=== PATIENT | male | born 1935 | race Caucasian/White ===

== ENCOUNTER 2021-10-11 16:09 | Inpatient (IN) ==
[2021-10-11 16:53] LABS: Basophils % 0.3 % (0.0-0.8); Eosinophils # 0.1 10*3/uL (0.0-0.87); Hematocrit 36.9 VOL% (42.0-52.0); Hemoglobin 12.2 GM/DL (14.0-18.0); Immature Granulocytes % 0.6 %; Immature Granulocytes Absolute 0.08 #; Lymphocytes # 2.1 10*3/uL (1.4-4.0); Lymphocytes % 16.4 % (21.2-54.2); Mean Corpuscular HGB Conc 33.1 GM/DL (32-36); Mean Corpuscular Volume 94.1 FL (87-102); Mean Platelet Volume 11.2 FL (9.6-12.0); Monocytes % 6.7 % (1.7-12.7); Platelet Count 142 T/CUMM (130-400); Red Blood Count 3.92 MC/CUMM (3.8-5.5); Red Cell Distribution Width 13.7 % (9.3-17.3)
[2021-10-11 17:01] LABS: INR 1.1; PT Patient Result 11.8 SECS (10.5-12.0)
[2021-10-11] MEDS: HEPARIN DRIP 25,000 UNITS/500 ML PREMIX IV SCH (17:10)
[2021-10-11 17:12] LABS: Albumin 3.7 G/DL (3.4-5.0); Bilirubin,Total 0.4 MG/DL (0.20-1.00); Osmolality,Calculated 279.8 MOS/KG (273-304); Potassium 4.3 MMOL/L (3.5-5.1); Total Protein 8.1 G/DL (6.4-8.2)
[2021-10-11] MEDS ORDERED: MORPHINE 2 MG/1 ML SYRINGE IV STA (17:18)
[2021-10-11] MEDS ORDERED: ONDANSETRON 4 MG/2 ML VIAL IV PRN (17:29)
[2021-10-11] MEDS ORDERED: GLUCAGON 1 MG VIAL IM PRN ×2 (17:36→17:38)
[2021-10-11] MEDS ORDERED: DEXTROSE 50% 25 GM/50 ML SYRINGE IV PRN (17:36)
[2021-10-11] MEDS: SODIUM CHLORIDE 0.9% 1,000 ML IV SCH (17:36)
[2021-10-11] MEDS ORDERED: DEXTROSE 50% 25 GM/50 ML VIAL IV PRN (17:38)
[2021-10-11] MEDS ORDERED: INSULIN LISPRO 100 UNIT/ML SUBCUT SCH (18:00)
[2021-10-11] MEDS ORDERED: DEXTROSE 10% 250 ML BAG IV PRN (20:06)
[2021-10-11] MEDS: MORPHINE 2 MG/1 ML SYRINGE IV PRN (20:26)
[2021-10-11] MEDS: GABAPENTIN 300 MG CAPSULE PO SCH (21:41)
[2021-10-11] MEDS: DOCUSATE SODIUM 100 MG CAPSULE PO SCH (21:42)
[2021-10-11] MEDS: METOPROLOL TARTRATE 50 MG TABLET PO SCH (21:42)
[2021-10-11] MEDS: ATORVASTATIN 20 MG TABLET PO SCH (21:42)
[2021-10-11] MEDS ORDERED: HYDROmorphone 2 MG/1 ML VIAL IV PRN (21:58)
[2021-10-11] MEDS: INSULIN LISPRO 100 UNIT/ML SUBCUT SCH (23:36)
[2021-10-12] MEDS: INSULIN LISPRO 100 UNIT/ML SUBCUT SCH ×4 (00:30→23:34)
[2021-10-12] MEDS: HYDROmorphone 2 MG/1 ML VIAL IV PRN ×4 (01:25→18:45)
[2021-10-12 08:29] LABS: Basophils % 0.3 % (0.0-0.8); Eosinophils # 0.1 10*3/uL (0.0-0.87); Eosinophils % 0.6 % (0.00-10.9); Hemoglobin 12.2 GM/DL (14.0-18.0); Immature Granulocytes % 0.4 %; Immature Granulocytes Absolute 0.05 #; Lymphocytes # 2.3 10*3/uL (1.4-4.0); Lymphocytes % 16.9 % (21.2-54.2); Mean Corpuscular HGB Conc 34.9 GM/DL (32-36); Mean Corpuscular Volume 91.9 FL (87-102); Mean Platelet Volume 10.8 FL (9.6-12.0); Monocytes % 10.4 % (1.7-12.7); Neutrophils % 71.4 % (38.7-73.9); Platelet Count 182 T/CUMM (130-400); Red Blood Count 3.81 MC/CUMM (3.8-5.5); Red Cell Distribution Width 13.5 % (9.3-17.3); White Blood Count 13.8 T/CUMM (4-12)
[2021-10-12] MEDS: METOPROLOL TARTRATE 50 MG TABLET PO SCH ×2 (08:34→23:36)
[2021-10-12] MEDS: PANTOPRAZOLE 40 MG TABLET PO SCH (08:34)
[2021-10-12] MEDS: DOCUSATE SODIUM 100 MG CAPSULE PO SCH ×2 (08:34→23:36)
[2021-10-12] MEDS: GABAPENTIN 300 MG CAPSULE PO SCH ×2 (08:34→23:36)
[2021-10-12 08:51] LABS: Calcium 8.6 MG/DL (8.5-10.1); Osmolality,Calculated 267.5 MOS/KG (273-304); Potassium 3.8 MMOL/L (3.5-5.1)
[2021-10-12] MEDS: SODIUM CHLORIDE 0.9% 1,000 ML IV SCH ×2 (10:08→12:21)
[2021-10-12] MEDS ORDERED: VANCOMYCIN INJ 1,500 MG in SODIUM CHLORIDE 0.9% 250 ML IV ONE (12:50)
[2021-10-12] MEDS ORDERED: HEPARIN 5,000 UNIT/1 ML VIAL ONE (13:08)
[2021-10-12] MEDS ORDERED: DEXAMETHASONE 4 MG/1 ML VIAL ONE (13:24)
[2021-10-12] MEDS ORDERED: INFLUENZA VIRUS VACCINE 0.5 ML SYRINGE IM ONE (13:28)
[2021-10-12] MEDS ORDERED: VANCOMYCIN INJ 1,500 MG in SODIUM CHLORIDE 0.9% 500 ML IV ONE (13:30)
[2021-10-12] MEDS ORDERED: LACTATED RINGERS 1,000 ML IV SCH (14:00)
[2021-10-12 16:15] LABS: Bilirubin,Urine Negative (Negative); Blood, Urine Large mg/dL (Negative); Glucose,Urine (UA) Negative (Negative); Hyaline Casts,Urine 1 /LPF (0-3); Ketones,Urine Negative (Negative); Nitrite,Urine Negative (Negative); Protein,Urine 100 MG/DL; RBC,Urine 1 /HPF (0-4); Urine Appearance CLEAR (Clear); Urine Color Yellow (Yellow); Urine Specific Gravity 1.012 (1.001-1.035); Urine Urobilinogen < 2.0 EU/DL (<2.0)
[2021-10-12] MEDS ORDERED: ONDANSETRON 4 MG/2 ML VIAL IV PRN (17:06)
[2021-10-12] MEDS ORDERED: MEPERIDINE 25 MG/1 ML VIAL ONE (17:25)
[2021-10-12] MEDS ORDERED: MEPERIDINE 25 MG/1 ML VIAL IV PRN (17:30)
[2021-10-12 18:01] LABS: Hematocrit 36.9 VOL% (42.0-52.0); Hemoglobin 12.2 GM/DL (14.0-18.0)
[2021-10-12 18:32] LABS: Calcium 8.2 MG/DL (8.5-10.1); Osmolality,Calculated 271.2 MOS/KG (273-304); Potassium 4.9 MMOL/L (3.5-5.1)
[2021-10-12] MEDS: ATORVASTATIN 20 MG TABLET PO SCH (23:36)
[2021-10-13] MEDS: HYDROmorphone 2 MG/1 ML VIAL IV PRN ×7 (00:16→21:36)
[2021-10-13] MEDS: INSULIN LISPRO 100 UNIT/ML SUBCUT SCH ×4 (01:35→17:25)
[2021-10-13] MEDS: SODIUM CHLORIDE 0.9% 1,000 ML IV SCH ×3 (01:56→17:25)
[2021-10-13] MEDS: LACTATED RINGERS 1,000 ML IV SCH ×4 (01:56→11:54)
[2021-10-13 06:11] LABS: Basophils % 0.1 % (0.0-0.8); Hematocrit 33.5 VOL% (42.0-52.0); Hemoglobin 11.3 GM/DL (14.0-18.0); Immature Granulocytes % 0.4 %; Immature Granulocytes Absolute 0.06 #; Lymphocytes # 1.9 10*3/uL (1.4-4.0); Lymphocytes % 13.2 % (21.2-54.2); Mean Corpuscular HGB Conc 33.7 GM/DL (32-36); Mean Corpuscular Volume 93.3 FL (87-102); Monocytes % 13.8 % (1.7-12.7); Neutrophils % 72.5 % (38.7-73.9); Platelet Count 160 T/CUMM (130-400); Red Blood Count 3.59 MC/CUMM (3.8-5.5); Red Cell Distribution Width 13.7 % (9.3-17.3); White Blood Count 14.6 T/CUMM (4-12)
[2021-10-13 06:36] LABS: Calcium 8.1 MG/DL (8.5-10.1); Osmolality,Calculated 272.2 MOS/KG (273-304); Potassium 4.3 MMOL/L (3.5-5.1)
[2021-10-13] MEDS: HEPARIN DRIP 25,000 UNITS/500 ML PREMIX IV SCH (08:11)
[2021-10-13] MEDS: MORPHINE 2 MG/1 ML SYRINGE IV PRN ×3 (08:43→18:15)
[2021-10-13] MEDS: PANTOPRAZOLE 40 MG TABLET PO SCH (08:44)
[2021-10-13] MEDS: ASPIRIN CHEW 81 MG TABLET PO SCH (08:44)
[2021-10-13] MEDS: METOPROLOL TARTRATE 50 MG TABLET PO SCH ×2 (08:45→20:07)
[2021-10-13] MEDS: GABAPENTIN 300 MG CAPSULE PO SCH ×2 (08:45→20:08)
[2021-10-13] MEDS: DOCUSATE SODIUM 100 MG CAPSULE PO SCH ×2 (08:45→20:07)
[2021-10-13] MEDS: ENOXAPARIN 30 MG/0.3 ML SYRINGE SUBCUT SCH ×2 (12:46→23:55)
[2021-10-13] MEDS: diphenhydrAMINE CAP 25 MG CAPSULE PO SCH (20:07)
[2021-10-13] MEDS: ACETAMINOPHEN 325 MG TABLET PO PRN (20:07)
[2021-10-13] MEDS: MULTIVITAMIN (INTRINSIC) CAPSULE PO SCH (20:07)
[2021-10-13] MEDS: ATORVASTATIN 20 MG TABLET PO SCH (20:07)
[2021-10-14] MEDS: HYDROmorphone 2 MG/1 ML VIAL IV PRN ×4 (00:12→22:33)
[2021-10-14] MEDS: INSULIN LISPRO 100 UNIT/ML SUBCUT SCH ×4 (00:13→18:11)
[2021-10-14] MEDS: SODIUM CHLORIDE 0.9% 1,000 ML IV SCH ×3 (02:12→18:10)
[2021-10-14] MEDS: ACETAMINOPHEN 325 MG TABLET PO PRN (04:35)
[2021-10-14] MEDS: MORPHINE 2 MG/1 ML SYRINGE IV PRN ×3 (06:40→17:00)
[2021-10-14] MEDS: LACTATED RINGERS 1,000 ML IV SCH ×2 (07:20→22:36)
[2021-10-14] MEDS: MULTIVITAMIN (INTRINSIC) CAPSULE PO SCH ×2 (08:52→21:03)
[2021-10-14] MEDS: DOCUSATE SODIUM 100 MG CAPSULE PO SCH ×2 (08:53→21:03)
[2021-10-14] MEDS: LORATADINE 10 MG TABLET PO SCH (08:53)
[2021-10-14] MEDS: GABAPENTIN 300 MG CAPSULE PO SCH ×2 (08:53→21:03)
[2021-10-14] MEDS: ASPIRIN CHEW 81 MG TABLET PO SCH (08:53)
[2021-10-14] MEDS: METOPROLOL TARTRATE 50 MG TABLET PO SCH ×2 (08:53→21:03)
[2021-10-14] MEDS: PANTOPRAZOLE 40 MG TABLET PO SCH (10:33)
[2021-10-14 11:15] LABS: Basophils % 0.2 % (0.0-0.8); Eosinophils # 0.1 10*3/uL (0.0-0.87); Eosinophils % 0.8 % (0.00-10.9); Hematocrit 33.8 VOL% (42.0-52.0); Hemoglobin 10.7 GM/DL (14.0-18.0); Immature Granulocytes % 0.5 %; Immature Granulocytes Absolute 0.07 #; Lymphocytes # 1.7 10*3/uL (1.4-4.0); Lymphocytes % 13.5 % (21.2-54.2); Mean Corpuscular HGB Conc 31.7 GM/DL (32-36); Mean Corpuscular Volume 99.4 FL (87-102); Mean Platelet Volume 10.7 FL (9.6-12.0); Red Cell Distribution Width 13.5 % (9.3-17.3); White Blood Count 12.8 T/CUMM (4-12)
[2021-10-14 11:21] LABS: Platelet Count 126 T/CUMM (130-400)
[2021-10-14 11:34] LABS: Albumin 2.2 G/DL (3.4-5.0); Bilirubin,Total 1.6 MG/DL (0.20-1.00); Calcium 7.9 MG/DL (8.5-10.1); Potassium 3.9 MMOL/L (3.5-5.1); Total Protein 6.2 G/DL (6.4-8.2)
[2021-10-14 11:48] LABS: Anisocytosis 1+; Macrocytosis 1+; Platelet Estimate Adequate
[2021-10-14] MEDS: ENOXAPARIN 30 MG/0.3 ML SYRINGE SUBCUT SCH ×2 (12:05→22:34)
[2021-10-14] MEDS: diphenhydrAMINE CAP 25 MG CAPSULE PO SCH (21:03)
[2021-10-14] MEDS: ATORVASTATIN 20 MG TABLET PO SCH (21:03)
[2021-10-15] MEDS: HYDROmorphone 2 MG/1 ML VIAL IV PRN ×5 (00:55→23:36)
[2021-10-15] MEDS: INSULIN LISPRO 100 UNIT/ML SUBCUT SCH ×4 (01:15→19:00)
[2021-10-15] MEDS: SODIUM CHLORIDE 0.9% 1,000 ML IV SCH ×3 (02:11→16:35)
[2021-10-15] MEDS: LACTATED RINGERS 1,000 ML IV SCH ×2 (04:12→14:21)
[2021-10-15 07:13] LABS: Basophils % 0.2 % (0.0-0.8); Eosinophils # 0.1 10*3/uL (0.0-0.87); Eosinophils % 0.7 % (0.00-10.9); Hematocrit 32.6 VOL% (42.0-52.0); Hemoglobin 10.5 GM/DL (14.0-18.0); Immature Granulocytes % 1.7 %; Immature Granulocytes Absolute 0.21 #; Lymphocytes # 1.5 10*3/uL (1.4-4.0); Lymphocytes % 11.8 % (21.2-54.2); Mean Corpuscular HGB Conc 32.2 GM/DL (32-36); Mean Corpuscular Volume 96.2 FL (87-102); Mean Platelet Volume 11.1 FL (9.6-12.0); Monocytes % 10.7 % (1.7-12.7); Neutrophils % 74.9 % (38.7-73.9); Platelet Count 158 T/CUMM (130-400); Red Blood Count 3.39 MC/CUMM (3.8-5.5); Red Cell Distribution Width 13.6 % (9.3-17.3); White Blood Count 12.6 T/CUMM (4-12)
[2021-10-15 07:43] LABS: Albumin 2.4 G/DL (3.4-5.0); Bilirubin,Total 0.6 MG/DL (0.20-1.00); Calcium 8.7 MG/DL (8.5-10.1); Osmolality,Calculated 277.1 MOS/KG (273-304); Potassium 3.9 MMOL/L (3.5-5.1)
[2021-10-15] MEDS: DOCUSATE SODIUM 100 MG CAPSULE PO SCH ×2 (08:37→20:17)
[2021-10-15] MEDS: ASPIRIN CHEW 81 MG TABLET PO SCH (08:37)
[2021-10-15] MEDS: METOPROLOL TARTRATE 50 MG TABLET PO SCH ×2 (08:37→20:17)
[2021-10-15] MEDS: LORATADINE 10 MG TABLET PO SCH (08:37)
[2021-10-15] MEDS: GABAPENTIN 300 MG CAPSULE PO SCH ×2 (08:37→20:17)
[2021-10-15] MEDS: MULTIVITAMIN (INTRINSIC) CAPSULE PO SCH ×2 (08:37→20:17)
[2021-10-15] MEDS: PANTOPRAZOLE 40 MG TABLET PO SCH (08:37)
[2021-10-15] MEDS: ACETAMINOPHEN 325 MG TABLET PO PRN (08:37)
[2021-10-15] MEDS ORDERED: SODIUM CHLORIDE 0.9% 500 ML IV ONE (11:14)
[2021-10-15] MEDS ORDERED: cefTRIAXone 1,000 MG in SODIUM CHLORIDE 0.9% 100 ML IV SCH (11:30)
[2021-10-15 12:14] LABS: Hepatitis B Core IgM Quant 0.22 Index; Hepatitis B Surface Ag Quant < 0.10 Index; Hepatitis B Surface Ag Result Non-Reactive (NonReactive); Hepatitis C Virus Ab Quant 0.07 Index; Hepatitis C Virus Ab Result Non-Reactive (NonReactive)
[2021-10-15] MEDS: ENOXAPARIN 30 MG/0.3 ML SYRINGE SUBCUT SCH ×2 (12:40→23:40)
[2021-10-15 15:54] LABS: Bilirubin,Urine Negative (Negative); Blood, Urine Large mg/dL (Negative); Glucose,Urine (UA) Negative (Negative); Ketones,Urine 5 mg/dL (Negative); Mucus,Urine Occasional /LPF (Occasional); Nitrite,Urine Negative (Negative); Protein,Urine 100 MG/DL; Squamous Epithelial Cell,Urine Occasional /HPF (0-10); Urine Appearance CLEAR (Clear); Urine Color Yellow (Yellow); Urine Specific Gravity 1.012 (1.001-1.035); Urine Urobilinogen < 2.0 EU/DL (<2.0)
[2021-10-15] MEDS: diphenhydrAMINE CAP 25 MG CAPSULE PO SCH (20:17)
[2021-10-16] MEDS: INSULIN LISPRO 100 UNIT/ML SUBCUT SCH ×4 (01:55→18:44)
[2021-10-16] MEDS: HYDROmorphone 2 MG/1 ML VIAL IV PRN ×4 (03:22→20:19)
[2021-10-16 06:15] LABS: Basophils % 0.1 % (0.0-0.8); Eosinophils # 0.1 10*3/uL (0.0-0.87); Hematocrit 29.2 VOL% (42.0-52.0); Hemoglobin 9.5 GM/DL (14.0-18.0); Immature Granulocytes % 0.5 %; Immature Granulocytes Absolute 0.06 #; Lymphocytes # 1.1 10*3/uL (1.4-4.0); Lymphocytes % 9.9 % (21.2-54.2); Mean Corpuscular HGB Conc 32.5 GM/DL (32-36); Mean Corpuscular Volume 96.1 FL (87-102); Mean Platelet Volume 10.7 FL (9.6-12.0); Monocytes % 11.2 % (1.7-12.7); Neutrophils % 77.3 % (38.7-73.9); Platelet Count 173 T/CUMM (130-400); Red Blood Count 3.04 MC/CUMM (3.8-5.5); Red Cell Distribution Width 13.6 % (9.3-17.3); White Blood Count 10.9 T/CUMM (4-12)
[2021-10-16 06:34] LABS: Calcium 8.7 MG/DL (8.5-10.1); Osmolality,Calculated 280.8 MOS/KG (273-304); Potassium 3.7 MMOL/L (3.5-5.1)
[2021-10-16 06:36] LABS: Alanine Aminotransferase 151 U/L (16-61); Alkaline Phosphatase 74 U/L (45-117); Aspartate Amino Transferase 567 U/L (0-37); Bilirubin,Direct < 0.100 MG/DL (0.0-0.20); Bilirubin,Indirect 1.7 MG/DL (0.0-1.0); Total Protein 6.4 G/DL (6.4-8.2)
[2021-10-16 06:37] LABS: Eosinophils 1 % (0-10); Hypochromia 1+; Lymphocytes 11 % (20-55); Microcytosis 1+; Platelet Estimate Adequate; Segmented Neutrophils 77 % (50-85); Total Cells Counted 100
[2021-10-16] MEDS: METOPROLOL TARTRATE 50 MG TABLET PO SCH ×2 (08:17→21:59)
[2021-10-16] MEDS: GABAPENTIN 300 MG CAPSULE PO SCH ×2 (08:17→21:57)
[2021-10-16] MEDS: ASPIRIN CHEW 81 MG TABLET PO SCH (08:17)
[2021-10-16] MEDS: PANTOPRAZOLE 40 MG TABLET PO SCH (08:17)
[2021-10-16] MEDS: LORATADINE 10 MG TABLET PO SCH (08:17)
[2021-10-16] MEDS: MULTIVITAMIN (INTRINSIC) CAPSULE PO SCH ×2 (08:17→21:56)
[2021-10-16] MEDS: DOCUSATE SODIUM 100 MG CAPSULE PO SCH ×2 (08:18→21:57)
[2021-10-16] MEDS: LACTATED RINGERS 1,000 ML IV SCH (10:43)
[2021-10-16] MEDS: SODIUM CHLORIDE 0.9% 1,000 ML IV SCH ×2 (12:01→18:44)
[2021-10-16] MEDS: CEFEPIME 1,000 MG in SODIUM CHLORIDE 0.9% 100 ML IV SCH ×2 (12:35→16:40)
[2021-10-16] MEDS: ENOXAPARIN 30 MG/0.3 ML SYRINGE SUBCUT SCH (12:36)
[2021-10-16] MEDS: POLYETHYLENE GLYCOL POWDER 17 GM PACK PO SCH (14:55)
[2021-10-16] MEDS: ACETAMINOPHEN 325 MG TABLET PO PRN (18:08)
[2021-10-16] MEDS: diphenhydrAMINE CAP 25 MG CAPSULE PO SCH (21:58)
[2021-10-17] MEDS: INSULIN LISPRO 100 UNIT/ML SUBCUT SCH ×4 (00:01→18:30)
[2021-10-17] MEDS: ENOXAPARIN 30 MG/0.3 ML SYRINGE SUBCUT SCH ×2 (00:49→13:34)
[2021-10-17] MEDS: ASPIRIN CHEW 81 MG TABLET PO SCH (08:41)
[2021-10-17] MEDS: PANTOPRAZOLE 40 MG TABLET PO SCH (08:42)
[2021-10-17] MEDS: GABAPENTIN 300 MG CAPSULE PO SCH ×2 (08:42→20:24)
[2021-10-17] MEDS: MULTIVITAMIN (INTRINSIC) CAPSULE PO SCH ×2 (08:42→20:24)
[2021-10-17] MEDS: LORATADINE 10 MG TABLET PO SCH (08:42)
[2021-10-17] MEDS: DOCUSATE SODIUM 100 MG CAPSULE PO SCH ×2 (08:42→20:24)
[2021-10-17] MEDS: METOPROLOL TARTRATE 50 MG TABLET PO SCH ×2 (08:42→20:24)
[2021-10-17] MEDS: POLYETHYLENE GLYCOL POWDER 17 GM PACK PO SCH (08:42)
[2021-10-17 09:07] LABS: Basophils % 0.3 % (0.0-0.8); Eosinophils # 0.2 10*3/uL (0.0-0.87); Eosinophils % 1.3 % (0.00-10.9); Hematocrit 29.5 VOL% (42.0-52.0); Hemoglobin 9.7 GM/DL (14.0-18.0); Immature Granulocytes % 0.7 %; Immature Granulocytes Absolute 0.08 #; Lymphocytes # 1.6 10*3/uL (1.4-4.0); Lymphocytes % 13.3 % (21.2-54.2); Mean Corpuscular HGB Conc 32.9 GM/DL (32-36); Mean Corpuscular Volume 95.2 FL (87-102); Mean Platelet Volume 10.5 FL (9.6-12.0); Monocytes % 10.2 % (1.7-12.7); Neutrophils % 74.2 % (38.7-73.9); Platelet Count 222 T/CUMM (130-400); Red Cell Distribution Width 13.9 % (9.3-17.3); White Blood Count 11.9 T/CUMM (4-12)
[2021-10-17 09:30] LABS: Albumin 2.1 G/DL (3.4-5.0); Bilirubin,Direct 0.15 MG/DL (0.0-0.20); Bilirubin,Indirect 0.8 MG/DL (0.0-1.0); Bilirubin,Total 0.9 MG/DL (0.20-1.00); Calcium 9.1 MG/DL (8.5-10.1); Osmolality,Calculated 291.1 MOS/KG (273-304); Potassium 3.9 MMOL/L (3.5-5.1)
[2021-10-17] MEDS: HYDROmorphone 2 MG/1 ML VIAL IV PRN ×2 (10:00→19:57)
[2021-10-17] MEDS: CEFEPIME 1,000 MG in SODIUM CHLORIDE 0.9% 100 ML IV SCH ×3 (11:19→16:58)
[2021-10-17] MEDS: SODIUM CHLORIDE 0.9% 1,000 ML IV SCH (11:23)
[2021-10-17] MEDS: LACTATED RINGERS 1,000 ML IV SCH (12:07)
[2021-10-17] MEDS: ACETAMINOPHEN 325 MG TABLET PO PRN (19:52)
[2021-10-17] MEDS: diphenhydrAMINE CAP 25 MG CAPSULE PO SCH (20:24)
[2021-10-18] MEDS: ENOXAPARIN 30 MG/0.3 ML SYRINGE SUBCUT SCH ×3 (00:09→23:49)
[2021-10-18] MEDS: INSULIN LISPRO 100 UNIT/ML SUBCUT SCH ×4 (00:40→18:14)
[2021-10-18] MEDS: CEFEPIME 1,000 MG in SODIUM CHLORIDE 0.9% 100 ML IV SCH ×3 (02:56→17:34)
[2021-10-18] MEDS: HYDROmorphone 2 MG/1 ML VIAL IV PRN ×2 (06:29→20:42)
[2021-10-18] MEDS: ACETAMINOPHEN 325 MG TABLET PO PRN (06:30)
[2021-10-18 07:45] LABS: Basophils # 0.1 10*3/uL (0.0-0.2); Basophils % 0.5 % (0.0-0.8); Eosinophils # 0.1 10*3/uL (0.0-0.87); Eosinophils % 0.8 % (0.00-10.9); Hematocrit 28.3 VOL% (42.0-52.0); Hemoglobin 9.4 GM/DL (14.0-18.0); Immature Granulocytes % 1.1 %; Immature Granulocytes Absolute 0.14 #; Lymphocytes # 1.7 10*3/uL (1.4-4.0); Lymphocytes % 13.7 % (21.2-54.2); Mean Corpuscular HGB Conc 33.2 GM/DL (32-36); Mean Corpuscular Volume 94.3 FL (87-102); Mean Platelet Volume 10.6 FL (9.6-12.0); Monocytes % 9.6 % (1.7-12.7); Neutrophils % 74.3 % (38.7-73.9); Platelet Count 265 T/CUMM (130-400); Red Cell Distribution Width 13.9 % (9.3-17.3); White Blood Count 12.4 T/CUMM (4-12)
[2021-10-18 08:11] LABS: Bilirubin,Direct 0.14 MG/DL (0.0-0.20); Bilirubin,Indirect 0.5 MG/DL (0.0-1.0); Bilirubin,Total 0.6 MG/DL (0.20-1.00); Calcium 9.5 MG/DL (8.5-10.1); Osmolality,Calculated 288.4 MOS/KG (273-304); Potassium 3.6 MMOL/L (3.5-5.1); Total Protein 7.1 G/DL (6.4-8.2)
[2021-10-18] MEDS ORDERED: METHEN/SOD PHOS/METH BLUE/HYOS TABLET PO PRN (09:35)
[2021-10-18] MEDS: LORATADINE 10 MG TABLET PO SCH (09:38)
[2021-10-18] MEDS: DOCUSATE SODIUM 100 MG CAPSULE PO SCH ×2 (09:38→20:44)
[2021-10-18] MEDS: METOPROLOL TARTRATE 50 MG TABLET PO SCH ×2 (09:38→20:45)
[2021-10-18] MEDS: ASPIRIN CHEW 81 MG TABLET PO SCH (09:38)
[2021-10-18] MEDS: PANTOPRAZOLE 40 MG TABLET PO SCH (09:38)
[2021-10-18] MEDS: GABAPENTIN 300 MG CAPSULE PO SCH ×3 (09:38→20:44)
[2021-10-18] MEDS: MULTIVITAMIN (INTRINSIC) CAPSULE PO SCH ×2 (09:38→20:44)
[2021-10-18] MEDS: POLYETHYLENE GLYCOL POWDER 17 GM PACK PO SCH (09:39)
[2021-10-18] MEDS ORDERED: KETOROLAC 15 MG/1 ML VIAL IV ONE (10:00)
[2021-10-18] MEDS: SODIUM CHLORIDE 0.9% 1,000 ML IV SCH ×2 (10:32→20:42)
[2021-10-18] MEDS: diphenhydrAMINE CAP 25 MG CAPSULE PO SCH (20:44)
[2021-10-19] MEDS: CEFEPIME 1,000 MG in SODIUM CHLORIDE 0.9% 100 ML IV SCH ×2 (01:37→10:11)
[2021-10-19] MEDS: HYDROmorphone 2 MG/1 ML VIAL IV PRN (04:52)
[2021-10-19] MEDS: INSULIN LISPRO 100 UNIT/ML SUBCUT SCH ×3 (06:00→12:48)
[2021-10-19] MEDS: POLYETHYLENE GLYCOL POWDER 17 GM PACK PO SCH (10:09)
[2021-10-19] MEDS: SODIUM CHLORIDE 0.9% 1,000 ML IV SCH (10:10)
[2021-10-19] MEDS: DOCUSATE SODIUM 100 MG CAPSULE PO SCH (10:11)
[2021-10-19] MEDS: LORATADINE 10 MG TABLET PO SCH (10:11)
[2021-10-19] MEDS: METOPROLOL TARTRATE 50 MG TABLET PO SCH (10:11)
[2021-10-19] MEDS: GABAPENTIN 300 MG CAPSULE PO SCH (10:11)
[2021-10-19] MEDS: MULTIVITAMIN (INTRINSIC) CAPSULE PO SCH (10:11)
[2021-10-19] MEDS: PANTOPRAZOLE 40 MG TABLET PO SCH (10:11)
[2021-10-19] MEDS: ASPIRIN CHEW 81 MG TABLET PO SCH (10:11)
[2021-10-19] MEDS: ENOXAPARIN 30 MG/0.3 ML SYRINGE SUBCUT SCH (11:55)
[2021-10-19 13:10] VITALS: BP 161/78
== END 2021-10-19 14:20 | DRG 253 ==
LOC: N.ED 16:09 → N.EDINP 17:28 → N.3E 19:28
PROVIDERS: ADMIT Family Medicine; ATTEND Family Medicine

== ENCOUNTER 2021-10-27 08:59 | Inpatient (IN) ==
[2021-10-27 10:27] LABS: Basophils % 0.3 % (0.0-0.8); Eosinophils % 0.3 % (0.00-10.9); Hematocrit 26.4 VOL% (42.0-52.0); Hemoglobin 8.5 GM/DL (14.0-18.0); Immature Granulocytes % 0.6 %; Immature Granulocytes Absolute 0.04 #; Lymphocytes # 1.7 10*3/uL (1.4-4.0); Lymphocytes % 26.9 % (21.2-54.2); Mean Corpuscular HGB Conc 32.2 GM/DL (32-36); Mean Corpuscular Volume 97.8 FL (87-102); Mean Platelet Volume 10.1 FL (9.6-12.0); Monocytes % 9.5 % (1.7-12.7); Neutrophils % 62.4 % (38.7-73.9); Platelet Count 381 T/CUMM (130-400); Red Cell Distribution Width 14.7 % (9.3-17.3); White Blood Count 6.2 T/CUMM (4-12)
[2021-10-27 10:58] LABS: Bacteria,Urine Occasional /HPF (Few); Bilirubin,Urine Negative (Negative); Blood, Urine Moderate mg/dL (Negative); Glucose,Urine (UA) Negative (Negative); Ketones,Urine Negative (Negative); Mucus,Urine Occasional /LPF (Occasional); Nitrite,Urine Negative (Negative); Protein,Urine 30 MG/DL; RBC,Urine 1 /HPF (0-4); Urine Appearance CLEAR (Clear); Urine Color Yellow (Yellow); Urine Specific Gravity 1.012 (1.001-1.035); Urine Urobilinogen < 2.0 EU/DL (<2.0)
[2021-10-27 11:07] LABS: INR 1.2; PT Patient Result 13.7 SECS (10.5-12.0); Partial Thromboplastin Time 27.6 SECS (23.8-32.1)
[2021-10-27] MEDS ORDERED: ONDANSETRON 4 MG/2 ML VIAL IV PRN (11:23)
[2021-10-27] MEDS: ACETAMINOPHEN 325 MG TABLET PO PRN (12:30)
[2021-10-27] MEDS ORDERED: DEXTROSE 10% 250 ML BAG IV PRN (13:43)
[2021-10-27] MEDS ORDERED: GLUCAGON 1 MG VIAL IM PRN (13:43)
[2021-10-27 14:33] LABS: Albumin 2.3 G/DL (3.4-5.0); Bilirubin,Total 0.5 MG/DL (0.20-1.00); Calcium 8.5 MG/DL (8.5-10.1); Osmolality,Calculated 284.8 MOS/KG (273-304); Potassium 4.3 MMOL/L (3.5-5.1)
[2021-10-27] MEDS: ENOXAPARIN 30 MG/0.3 ML SYRINGE SUBCUT SCH (15:49)
[2021-10-27] MEDS: GABAPENTIN 300 MG CAPSULE PO SCH ×2 (15:49→21:00)
[2021-10-27] MEDS: INSULIN LISPRO 100 UNIT/ML SUBCUT SCH ×2 (18:00→21:39)
[2021-10-27] MEDS: SODIUM CHLORIDE 0.9% 1,000 ML IV SCH (18:22)
[2021-10-27] MEDS: DONEPEZIL 5 MG TABLET PO SCH (18:23)
[2021-10-27] MEDS: FAMOTIDINE 20 MG TABLET PO SCH (18:23)
[2021-10-27] MEDS: diphenhydrAMINE CAP 25 MG CAPSULE PO SCH (20:59)
[2021-10-27] MEDS: AMITRIPTYLINE 50 MG TABLET PO SCH (20:59)
[2021-10-27] MEDS: ATORVASTATIN 20 MG TABLET PO SCH (20:59)
[2021-10-27] MEDS: METOPROLOL TARTRATE 50 MG TABLET PO SCH (21:00)
[2021-10-27] MEDS: ZALEPLON 5 MG CAPSULE PO SCH (21:00)
[2021-10-27] MEDS: DOCUSATE SODIUM 100 MG CAPSULE PO SCH (21:00)
[2021-10-27] MEDS: SERTRALINE 25 MG TABLET PO SCH (21:00)
[2021-10-28] MEDS: traMADol 50 MG TABLET PO PRN ×3 (00:02→17:38)
[2021-10-28] MEDS: ENOXAPARIN 30 MG/0.3 ML SYRINGE SUBCUT SCH ×2 (01:52→16:57)
[2021-10-28] MEDS: SODIUM CHLORIDE 0.9% 1,000 ML IV SCH ×2 (03:55→16:58)
[2021-10-28] MEDS: INSULIN LISPRO 100 UNIT/ML SUBCUT SCH ×4 (08:10→20:46)
[2021-10-28] MEDS ORDERED: metFORMIN 500 MG TABLET PO SCH (09:00)
[2021-10-28 09:32] LABS: Basophils % 0.4 % (0.0-0.8); Eosinophils % 0.2 % (0.00-10.9); Hematocrit 27.8 VOL% (42.0-52.0); Hemoglobin 8.6 GM/DL (14.0-18.0); Immature Granulocytes % 1.7 %; Immature Granulocytes Absolute 0.09 #; Lymphocytes # 1.2 10*3/uL (1.4-4.0); Lymphocytes % 22.1 % (21.2-54.2); Mean Corpuscular HGB Conc 30.9 GM/DL (32-36); Mean Corpuscular Volume 99.3 FL (87-102); Mean Platelet Volume 10.1 FL (9.6-12.0); Monocytes % 10.2 % (1.7-12.7); Neutrophils % 65.4 % (38.7-73.9); Platelet Count 374 T/CUMM (130-400); Red Cell Distribution Width 14.6 % (9.3-17.3); White Blood Count 5.3 T/CUMM (4-12)
[2021-10-28 09:43] LABS: Calcium 8.1 MG/DL (8.5-10.1); Osmolality,Calculated 283.5 MOS/KG (273-304); Potassium 4.5 MMOL/L (3.5-5.1)
[2021-10-28 10:42] LABS: Lymphocytes 18 % (20-55); Segmented Neutrophils 71 % (50-85); Total Cells Counted 100
[2021-10-28 10:43] LABS: Platelet Estimate Normal; Polychromasia Slight
[2021-10-28] MEDS: ASPIRIN CHEW 81 MG TABLET PO SCH (12:58)
[2021-10-28] MEDS: CHLORTHALIDONE 25 MG TABLET PO SCH (12:59)
[2021-10-28] MEDS: DOCUSATE SODIUM 100 MG CAPSULE PO SCH ×3 (12:59→20:45)
[2021-10-28] MEDS: LORATADINE 10 MG TABLET PO SCH (12:59)
[2021-10-28] MEDS: METOPROLOL TARTRATE 50 MG TABLET PO SCH ×2 (12:59→20:45)
[2021-10-28] MEDS: GABAPENTIN 300 MG CAPSULE PO SCH ×3 (13:00→20:45)
[2021-10-28] MEDS: amLODIPine 5 MG TABLET PO SCH (13:00)
[2021-10-28] MEDS: FAMOTIDINE 20 MG TABLET PO SCH (13:01)
[2021-10-28] MEDS: PANTOPRAZOLE 40 MG TABLET PO SCH ×2 (13:01)
[2021-10-28] MEDS: CHOLECALCIFEROL 5,000 UNIT TABLET PO SCH (13:05)
[2021-10-28] MEDS: ASCORBIC ACID 500 MG TABLET PO SCH (13:05)
[2021-10-28] MEDS: DONEPEZIL 5 MG TABLET PO SCH (16:25)
[2021-10-28] MEDS: MEROPENEM 500 MG in SODIUM CHLORIDE 0.9% 100 ML IV SCH ×2 (16:57→23:55)
[2021-10-28] MEDS: methylPREDNISolone SOD SUC 40 MG/1 ML VIAL IV SCH (16:57)
[2021-10-28] MEDS: ACETAMINOPHEN 325 MG TABLET PO PRN (17:38)
[2021-10-28] MEDS: AMITRIPTYLINE 50 MG TABLET PO SCH (20:45)
[2021-10-28] MEDS: ZALEPLON 5 MG CAPSULE PO SCH (20:45)
[2021-10-28] MEDS: ATORVASTATIN 20 MG TABLET PO SCH (20:45)
[2021-10-28] MEDS: SERTRALINE 25 MG TABLET PO SCH (20:45)
[2021-10-28] MEDS: diphenhydrAMINE CAP 25 MG CAPSULE PO SCH (20:45)
[2021-10-29] MEDS: ENOXAPARIN 30 MG/0.3 ML SYRINGE SUBCUT SCH ×2 (02:44→18:04)
[2021-10-29] MEDS: traMADol 50 MG TABLET PO PRN (03:40)
[2021-10-29] MEDS: methylPREDNISolone SOD SUC 40 MG/1 ML VIAL IV SCH ×2 (03:44→18:08)
[2021-10-29] MEDS: SODIUM CHLORIDE 0.9% 1,000 ML IV SCH ×2 (05:22→08:34)
[2021-10-29] MEDS: INSULIN LISPRO 100 UNIT/ML SUBCUT SCH ×4 (07:50→20:49)
[2021-10-29] MEDS: amLODIPine 5 MG TABLET PO SCH (08:30)
[2021-10-29] MEDS: ASPIRIN CHEW 81 MG TABLET PO SCH (08:30)
[2021-10-29] MEDS: ASCORBIC ACID 500 MG TABLET PO SCH (08:31)
[2021-10-29] MEDS: PANTOPRAZOLE 40 MG TABLET PO SCH ×2 (08:31→10:51)
[2021-10-29] MEDS: CHLORTHALIDONE 25 MG TABLET PO SCH (08:31)
[2021-10-29] MEDS: LORATADINE 10 MG TABLET PO SCH (08:31)
[2021-10-29] MEDS: CHOLECALCIFEROL 5,000 UNIT TABLET PO SCH (08:32)
[2021-10-29] MEDS: METOPROLOL TARTRATE 50 MG TABLET PO SCH ×2 (08:32→20:42)
[2021-10-29] MEDS: DOCUSATE SODIUM 100 MG CAPSULE PO SCH ×3 (08:32→20:42)
[2021-10-29] MEDS: FAMOTIDINE 20 MG TABLET PO SCH (08:32)
[2021-10-29] MEDS: MEROPENEM 500 MG in SODIUM CHLORIDE 0.9% 100 ML IV SCH ×2 (08:33→18:03)
[2021-10-29] MEDS: GABAPENTIN 300 MG CAPSULE PO SCH ×3 (08:34→20:41)
[2021-10-29 09:08] LABS: Hematocrit 29.5 VOL% (42.0-52.0); Hemoglobin 9.3 GM/DL (14.0-18.0); Immature Granulocytes % 0.5 %; Immature Granulocytes Absolute 0.04 #; Lymphocytes # 1.1 10*3/uL (1.4-4.0); Lymphocytes % 13.1 % (21.2-54.2); Mean Corpuscular HGB Conc 31.5 GM/DL (32-36); Mean Platelet Volume 10.1 FL (9.6-12.0); Monocytes % 5.7 % (1.7-12.7); Neutrophils % 80.7 % (38.7-73.9); Platelet Count 344 T/CUMM (130-400); Red Blood Count 3.01 MC/CUMM (3.8-5.5); Red Cell Distribution Width 14.6 % (9.3-17.3); White Blood Count 8.3 T/CUMM (4-12)
[2021-10-29 09:25] LABS: Albumin 1.9 G/DL (3.4-5.0); Bilirubin,Total 0.6 MG/DL (0.20-1.00); Calcium 8.6 MG/DL (8.5-10.1); Osmolality,Calculated 291.4 MOS/KG (273-304); Potassium 4.4 MMOL/L (3.5-5.1); Total Protein 6.8 G/DL (6.4-8.2)
[2021-10-29 09:28] LABS: Atypical Lymphocytes Few; Band Neutrophils 2 % (0-10); Lymphocytes 11 % (20-55); Segmented Neutrophils 84 % (50-85); Total Cells Counted 100
[2021-10-29 09:29] LABS: Platelet Estimate Normal; Polychromasia Slight
[2021-10-29] MEDS: DONEPEZIL 5 MG TABLET PO SCH (18:08)
[2021-10-29] MEDS: diphenhydrAMINE CAP 25 MG CAPSULE PO SCH (20:41)
[2021-10-29] MEDS: ZALEPLON 5 MG CAPSULE PO SCH (20:41)
[2021-10-29] MEDS: AMITRIPTYLINE 50 MG TABLET PO SCH (20:41)
[2021-10-29] MEDS: ATORVASTATIN 20 MG TABLET PO SCH (20:42)
[2021-10-29] MEDS: SERTRALINE 25 MG TABLET PO SCH (20:42)
[2021-10-30] MEDS: MEROPENEM 500 MG in SODIUM CHLORIDE 0.9% 100 ML IV SCH ×3 (00:25→16:49)
[2021-10-30] MEDS: SODIUM CHLORIDE 0.9% 1,000 ML IV SCH ×2 (02:04→16:04)
[2021-10-30] MEDS: ENOXAPARIN 30 MG/0.3 ML SYRINGE SUBCUT SCH ×2 (02:04→15:18)
[2021-10-30] MEDS: methylPREDNISolone SOD SUC 40 MG/1 ML VIAL IV SCH ×2 (03:49→16:49)
[2021-10-30 05:32] LABS: Hematocrit 27.7 VOL% (42.0-52.0); Hemoglobin 8.6 GM/DL (14.0-18.0); Immature Granulocytes % 0.9 %; Immature Granulocytes Absolute 0.11 #; Lymphocytes % 8.7 % (21.2-54.2); Mean Corpuscular Volume 99.3 FL (87-102); Mean Platelet Volume 10.2 FL (9.6-12.0); Monocytes % 5.6 % (1.7-12.7); Neutrophils % 84.8 % (38.7-73.9); Platelet Count 305 T/CUMM (130-400); Red Blood Count 2.79 MC/CUMM (3.8-5.5); Red Cell Distribution Width 14.3 % (9.3-17.3); White Blood Count 11.8 T/CUMM (4-12)
[2021-10-30 06:00] LABS: Albumin 1.7 G/DL (3.4-5.0); Bilirubin,Total 0.8 MG/DL (0.20-1.00); Calcium 7.8 MG/DL (8.5-10.1); Osmolality,Calculated 296.1 MOS/KG (273-304); Potassium 4.3 MMOL/L (3.5-5.1); Total Protein 6.1 G/DL (6.4-8.2)
[2021-10-30] MEDS: CHLORTHALIDONE 25 MG TABLET PO SCH (09:09)
[2021-10-30] MEDS: LORATADINE 10 MG TABLET PO SCH (09:09)
[2021-10-30] MEDS: ASCORBIC ACID 500 MG TABLET PO SCH (09:09)
[2021-10-30] MEDS: CHOLECALCIFEROL 5,000 UNIT TABLET PO SCH (09:09)
[2021-10-30] MEDS: DOCUSATE SODIUM 100 MG CAPSULE PO SCH ×3 (09:10→20:33)
[2021-10-30] MEDS: METOPROLOL TARTRATE 50 MG TABLET PO SCH ×2 (09:10→20:32)
[2021-10-30] MEDS: FAMOTIDINE 20 MG TABLET PO SCH (09:10)
[2021-10-30] MEDS: ASPIRIN CHEW 81 MG TABLET PO SCH (09:10)
[2021-10-30] MEDS: GABAPENTIN 300 MG CAPSULE PO SCH ×3 (09:10→20:34)
[2021-10-30] MEDS: PANTOPRAZOLE 40 MG TABLET PO SCH (09:10)
[2021-10-30] MEDS: amLODIPine 10 MG TABLET PO SCH (09:10)
[2021-10-30] MEDS: INSULIN LISPRO 100 UNIT/ML SUBCUT SCH ×4 (09:11→20:34)
[2021-10-30] MEDS ORDERED: SODIUM CHLORIDE 0.9% 1,000 ML IV PRN (09:57)
[2021-10-30] MEDS: DONEPEZIL 5 MG TABLET PO SCH (16:47)
[2021-10-30] MEDS: ATORVASTATIN 20 MG TABLET PO SCH (20:32)
[2021-10-30] MEDS: SERTRALINE 25 MG TABLET PO SCH (20:32)
[2021-10-30] MEDS: AMITRIPTYLINE 50 MG TABLET PO SCH (20:34)
[2021-10-30] MEDS: diphenhydrAMINE CAP 25 MG CAPSULE PO SCH (20:34)
[2021-10-30] MEDS: ZALEPLON 5 MG CAPSULE PO SCH (20:34)
[2021-10-31] MEDS: MEROPENEM 500 MG in SODIUM CHLORIDE 0.9% 100 ML IV SCH ×3 (04:35→21:33)
[2021-10-31] MEDS: methylPREDNISolone SOD SUC 40 MG/1 ML VIAL IV SCH ×2 (04:35→16:45)
[2021-10-31] MEDS: ENOXAPARIN 30 MG/0.3 ML SYRINGE SUBCUT SCH ×2 (04:36→16:42)
[2021-10-31 06:44] LABS: Albumin 1.8 G/DL (3.4-5.0); Bilirubin,Total 0.5 MG/DL (0.20-1.00); Calcium 7.8 MG/DL (8.5-10.1); Osmolality,Calculated 293.3 MOS/KG (273-304); Total Protein 6.1 G/DL (6.4-8.2)
[2021-10-31] MEDS: INSULIN LISPRO 100 UNIT/ML SUBCUT SCH ×3 (08:05→17:06)
[2021-10-31] MEDS: amLODIPine 10 MG TABLET PO SCH (09:04)
[2021-10-31] MEDS: CHOLECALCIFEROL 5,000 UNIT TABLET PO SCH (09:04)
[2021-10-31] MEDS: ASCORBIC ACID 500 MG TABLET PO SCH (09:04)
[2021-10-31] MEDS: CHLORTHALIDONE 25 MG TABLET PO SCH (09:04)
[2021-10-31] MEDS: METOPROLOL TARTRATE 50 MG TABLET PO SCH ×2 (09:04→21:33)
[2021-10-31] MEDS: PANTOPRAZOLE 40 MG TABLET PO SCH (09:04)
[2021-10-31] MEDS: ASPIRIN CHEW 81 MG TABLET PO SCH (09:04)
[2021-10-31] MEDS: LORATADINE 10 MG TABLET PO SCH (09:04)
[2021-10-31] MEDS: GABAPENTIN 300 MG CAPSULE PO SCH ×3 (09:04→21:33)
[2021-10-31] MEDS: FAMOTIDINE 20 MG TABLET PO SCH (09:04)
[2021-10-31] MEDS: DOCUSATE SODIUM 100 MG CAPSULE PO SCH ×3 (09:08→21:33)
[2021-10-31] MEDS: SODIUM CHLORIDE 0.9% 1,000 ML IV SCH ×2 (14:49→17:06)
[2021-10-31] MEDS: DONEPEZIL 5 MG TABLET PO SCH (16:45)
[2021-10-31] MEDS: ATORVASTATIN 20 MG TABLET PO SCH (21:33)
[2021-10-31] MEDS: diphenhydrAMINE CAP 25 MG CAPSULE PO SCH (21:33)
[2021-10-31] MEDS: ZALEPLON 5 MG CAPSULE PO SCH (21:33)
[2021-10-31] MEDS: AMITRIPTYLINE 50 MG TABLET PO SCH (21:35)
[2021-10-31] MEDS: SERTRALINE 25 MG TABLET PO SCH (21:36)
[2021-11-01] MEDS: MEROPENEM 500 MG in SODIUM CHLORIDE 0.9% 100 ML IV SCH ×3 (03:31→22:29)
[2021-11-01] MEDS: methylPREDNISolone SOD SUC 40 MG/1 ML VIAL IV SCH ×2 (03:32→16:25)
[2021-11-01] MEDS: ENOXAPARIN 30 MG/0.3 ML SYRINGE SUBCUT SCH ×2 (03:32→16:24)
[2021-11-01] MEDS: INSULIN LISPRO 100 UNIT/ML SUBCUT SCH ×5 (06:32→22:31)
[2021-11-01 06:37] LABS: Calcium 8.1 MG/DL (8.5-10.1); Osmolality,Calculated 287.4 MOS/KG (273-304); Potassium 4.4 MMOL/L (3.5-5.1)
[2021-11-01 06:38] LABS: Basophils % 0.2 % (0.0-0.8); Hematocrit 36.9 VOL% (42.0-52.0); Hemoglobin 11.2 GM/DL (14.0-18.0); Immature Granulocytes % 1.9 %; Immature Granulocytes Absolute 0.16 #; Lymphocytes # 0.8 10*3/uL (1.4-4.0); Lymphocytes % 9.9 % (21.2-54.2); Mean Corpuscular HGB Conc 30.4 GM/DL (32-36); Mean Corpuscular Volume 101.9 FL (87-102); Mean Platelet Volume 10.4 FL (9.6-12.0); Monocytes % 8.5 % (1.7-12.7); Neutrophils % 79.5 % (38.7-73.9); Platelet Count 228 T/CUMM (130-400); Red Blood Count 3.62 MC/CUMM (3.8-5.5); Red Cell Distribution Width 14.5 % (9.3-17.3); White Blood Count 8.5 T/CUMM (4-12)
[2021-11-01 06:52] LABS: Band Neutrophils 1 % (0-10); Hypochromia Slight; Lymphocytes 7 % (20-55); Microcytosis Slight; Nucleated Red Blood Cells 1 (0-5); Platelet Estimate Adequate; Segmented Neutrophils 86 % (50-85); Total Cells Counted 100
[2021-11-01] MEDS: SODIUM CHLORIDE 0.9% 1,000 ML IV SCH ×3 (08:05→23:19)
[2021-11-01] MEDS: ASPIRIN CHEW 81 MG TABLET PO SCH (10:38)
[2021-11-01] MEDS: GABAPENTIN 300 MG CAPSULE PO SCH ×3 (10:38→22:30)
[2021-11-01] MEDS: METOPROLOL TARTRATE 50 MG TABLET PO SCH ×2 (10:38→22:31)
[2021-11-01] MEDS: CHOLECALCIFEROL 5,000 UNIT TABLET PO SCH (10:39)
[2021-11-01] MEDS: CHLORTHALIDONE 25 MG TABLET PO SCH (10:39)
[2021-11-01] MEDS: LORATADINE 10 MG TABLET PO SCH (10:39)
[2021-11-01] MEDS: ASCORBIC ACID 500 MG TABLET PO SCH (10:39)
[2021-11-01] MEDS: amLODIPine 10 MG TABLET PO SCH (10:40)
[2021-11-01] MEDS: PANTOPRAZOLE 40 MG TABLET PO SCH (10:41)
[2021-11-01] MEDS: DOCUSATE SODIUM 100 MG CAPSULE PO SCH ×3 (10:41→22:30)
[2021-11-01] MEDS: FAMOTIDINE 20 MG TABLET PO SCH (10:41)
[2021-11-01] MEDS: DONEPEZIL 5 MG TABLET PO SCH (16:25)
[2021-11-01] MEDS ORDERED: LORazepam 2 MG/1 ML VIAL IV ONE (21:53)
[2021-11-01] MEDS: ATORVASTATIN 20 MG TABLET PO SCH (22:30)
[2021-11-01] MEDS: ZALEPLON 5 MG CAPSULE PO SCH (22:30)
[2021-11-01] MEDS: diphenhydrAMINE CAP 25 MG CAPSULE PO SCH (22:30)
[2021-11-01] MEDS: AMITRIPTYLINE 50 MG TABLET PO SCH (22:31)
[2021-11-01] MEDS: SERTRALINE 25 MG TABLET PO SCH (22:31)
[2021-11-01 23:13] LABS: ABG Base Excess -0.4 MMOL/L (-2.5-2.5); ABG HCO3 20.2 MMOL/L (20-26); ABG PCO2 24.2 MM HG (35-48); ABG PO2 169.4 MM HG (80-95)
[2021-11-02] MEDS: SODIUM CHLORIDE 0.9% 1,000 ML IV SCH ×2 (02:00→16:28)
[2021-11-02] MEDS: ENOXAPARIN 30 MG/0.3 ML SYRINGE SUBCUT SCH ×2 (04:44→17:06)
[2021-11-02] MEDS: methylPREDNISolone SOD SUC 40 MG/1 ML VIAL IV SCH ×2 (04:44→17:06)
[2021-11-02] MEDS: MEROPENEM 500 MG in SODIUM CHLORIDE 0.9% 100 ML IV SCH ×2 (04:45→17:07)
[2021-11-02] MEDS: traMADol 50 MG TABLET PO PRN (05:36)
[2021-11-02 07:21] LABS: Albumin 1.8 G/DL (3.4-5.0); Bilirubin,Total 0.7 MG/DL (0.20-1.00); Calcium 8.5 MG/DL (8.5-10.1); Osmolality,Calculated 277.1 MOS/KG (273-304); Potassium 4.1 MMOL/L (3.5-5.1); Total Protein 6.3 G/DL (6.4-8.2)
[2021-11-02 07:25] LABS: Basophils % 0.1 % (0.0-0.8); Hemoglobin 10.1 GM/DL (14.0-18.0); Immature Granulocytes % 1.3 %; Immature Granulocytes Absolute 0.13 #; Lymphocytes # 0.6 10*3/uL (1.4-4.0); Lymphocytes % 5.7 % (21.2-54.2); Mean Corpuscular HGB Conc 31.6 GM/DL (32-36); Mean Corpuscular Volume 94.7 FL (87-102); Mean Platelet Volume 10.5 FL (9.6-12.0); Monocytes % 7.1 % (1.7-12.7); Neutrophils % 85.8 % (38.7-73.9); Platelet Count 237 T/CUMM (130-400); Red Blood Count 3.38 MC/CUMM (3.8-5.5); Red Cell Distribution Width 14.1 % (9.3-17.3); White Blood Count 10.4 T/CUMM (4-12)
[2021-11-02 07:56] LABS: Platelet Estimate Normal
[2021-11-02 07:57] LABS: Anisocytosis Slight; Macrocytosis Slight
[2021-11-02] MEDS: CHOLECALCIFEROL 5,000 UNIT TABLET PO SCH (08:47)
[2021-11-02] MEDS: METOPROLOL TARTRATE 50 MG TABLET PO SCH ×2 (08:47→20:45)
[2021-11-02] MEDS: ASCORBIC ACID 500 MG TABLET PO SCH (08:47)
[2021-11-02] MEDS: GABAPENTIN 300 MG CAPSULE PO SCH ×3 (08:47→20:46)
[2021-11-02] MEDS: amLODIPine 10 MG TABLET PO SCH (08:47)
[2021-11-02] MEDS: INSULIN LISPRO 100 UNIT/ML SUBCUT SCH ×4 (08:47→22:30)
[2021-11-02] MEDS: ASPIRIN CHEW 81 MG TABLET PO SCH (08:47)
[2021-11-02] MEDS: CHLORTHALIDONE 25 MG TABLET PO SCH (08:47)
[2021-11-02] MEDS: LORATADINE 10 MG TABLET PO SCH (08:48)
[2021-11-02] MEDS: FAMOTIDINE 20 MG TABLET PO SCH (08:48)
[2021-11-02] MEDS: PANTOPRAZOLE 40 MG TABLET PO SCH (08:48)
[2021-11-02] MEDS: DOCUSATE SODIUM 100 MG CAPSULE PO SCH ×3 (08:48→20:46)
[2021-11-02] MEDS ORDERED: FUROSEMIDE 20 MG/2 ML VIAL IV ONE (09:23)
[2021-11-02] MEDS: DONEPEZIL 5 MG TABLET PO SCH (17:06)
[2021-11-02] MEDS: AMITRIPTYLINE 50 MG TABLET PO SCH (20:28)
[2021-11-02] MEDS: ATORVASTATIN 20 MG TABLET PO SCH (20:45)
[2021-11-02] MEDS: diphenhydrAMINE CAP 25 MG CAPSULE PO SCH (20:45)
[2021-11-02] MEDS: ZALEPLON 5 MG CAPSULE PO SCH (20:45)
[2021-11-02] MEDS: SERTRALINE 25 MG TABLET PO SCH (20:46)
[2021-11-03] MEDS: MEROPENEM 500 MG in SODIUM CHLORIDE 0.9% 100 ML IV SCH ×3 (00:30→17:30)
[2021-11-03] MEDS: ENOXAPARIN 30 MG/0.3 ML SYRINGE SUBCUT SCH ×2 (03:34→17:57)
[2021-11-03] MEDS: methylPREDNISolone SOD SUC 40 MG/1 ML VIAL IV SCH ×3 (03:34→17:56)
[2021-11-03] MEDS: SODIUM CHLORIDE 0.9% 1,000 ML IV SCH (04:15)
[2021-11-03 06:00] LABS: Basophils % 0.1 % (0.0-0.8); Hematocrit 33.4 VOL% (42.0-52.0); Hemoglobin 10.7 GM/DL (14.0-18.0); Immature Granulocytes % 0.7 %; Immature Granulocytes Absolute 0.07 #; Lymphocytes # 0.6 10*3/uL (1.4-4.0); Lymphocytes % 6.2 % (21.2-54.2); Mean Corpuscular Volume 96.5 FL (87-102); Mean Platelet Volume 10.8 FL (9.6-12.0); Monocytes % 5.8 % (1.7-12.7); Neutrophils % 87.2 % (38.7-73.9); Platelet Count 228 T/CUMM (130-400); Red Blood Count 3.46 MC/CUMM (3.8-5.5); Red Cell Distribution Width 14.4 % (9.3-17.3); White Blood Count 9.4 T/CUMM (4-12)
[2021-11-03 06:17] LABS: Albumin 1.7 G/DL (3.4-5.0); Bilirubin,Total 0.8 MG/DL (0.20-1.00); Calcium 8.2 MG/DL (8.5-10.1); Osmolality,Calculated 291.5 MOS/KG (273-304); Potassium 4.3 MMOL/L (3.5-5.1); Total Protein 6.5 G/DL (6.4-8.2)
[2021-11-03] MEDS: CHOLECALCIFEROL 5,000 UNIT TABLET PO SCH (10:25)
[2021-11-03] MEDS: amLODIPine 10 MG TABLET PO SCH (10:25)
[2021-11-03] MEDS: ASPIRIN CHEW 81 MG TABLET PO SCH (10:25)
[2021-11-03] MEDS: METOPROLOL TARTRATE 50 MG TABLET PO SCH ×2 (10:26→20:37)
[2021-11-03] MEDS: DOCUSATE SODIUM 100 MG CAPSULE PO SCH (10:26)
[2021-11-03] MEDS: GABAPENTIN 300 MG CAPSULE PO SCH ×3 (10:26→20:37)
[2021-11-03] MEDS: PANTOPRAZOLE 40 MG TABLET PO SCH (10:26)
[2021-11-03] MEDS: traMADol 50 MG TABLET PO PRN (10:27)
[2021-11-03] MEDS: CHLORTHALIDONE 25 MG TABLET PO SCH (10:27)
[2021-11-03] MEDS: FAMOTIDINE 20 MG TABLET PO SCH (10:27)
[2021-11-03] MEDS: LORATADINE 10 MG TABLET PO SCH (10:27)
[2021-11-03] MEDS: ASCORBIC ACID 500 MG TABLET PO SCH (10:28)
[2021-11-03] MEDS: INSULIN LISPRO 100 UNIT/ML SUBCUT SCH ×4 (10:31→20:39)
[2021-11-03] MEDS ORDERED: FUROSEMIDE 40 MG/4 ML VIAL IV ONE (16:36)
[2021-11-03] MEDS ORDERED: hydrALAZINE 20 MG/1 ML VIAL IV PRN (17:01)
[2021-11-03] MEDS: METOPROLOL TARTRATE 5 MG/5 ML VIAL IV SCH (17:56)
[2021-11-03] MEDS: DONEPEZIL 5 MG TABLET PO SCH (17:57)
[2021-11-03] MEDS: SERTRALINE 25 MG TABLET PO SCH (20:36)
[2021-11-03] MEDS: AMITRIPTYLINE 50 MG TABLET PO SCH (20:36)
[2021-11-03] MEDS: ZALEPLON 5 MG CAPSULE PO SCH (20:37)
[2021-11-03] MEDS: diphenhydrAMINE CAP 25 MG CAPSULE PO SCH (20:37)
[2021-11-03] MEDS: MORPHINE 2 MG/1 ML SYRINGE IV PRN (22:21)
[2021-11-04] MEDS: MEROPENEM 500 MG in SODIUM CHLORIDE 0.9% 100 ML IV SCH ×3 (00:09→17:11)
[2021-11-04] MEDS: METOPROLOL TARTRATE 5 MG/5 ML VIAL IV SCH ×5 (00:10→23:43)
[2021-11-04] MEDS: MORPHINE 2 MG/1 ML SYRINGE IV PRN ×2 (02:36→12:34)
[2021-11-04] MEDS: methylPREDNISolone SOD SUC 40 MG/1 ML VIAL IV SCH ×2 (04:32→17:12)
[2021-11-04] MEDS: ENOXAPARIN 30 MG/0.3 ML SYRINGE SUBCUT SCH ×2 (04:33→16:14)
[2021-11-04] MEDS: ASPIRIN CHEW 81 MG TABLET PO SCH (08:22)
[2021-11-04] MEDS: INSULIN LISPRO 100 UNIT/ML SUBCUT SCH ×4 (08:22→20:35)
[2021-11-04] MEDS: FAMOTIDINE 20 MG TABLET PO SCH (08:22)
[2021-11-04] MEDS: GABAPENTIN 300 MG CAPSULE PO SCH ×3 (08:22→20:34)
[2021-11-04] MEDS: CHOLECALCIFEROL 5,000 UNIT TABLET PO SCH (08:22)
[2021-11-04] MEDS: METOPROLOL TARTRATE 50 MG TABLET PO SCH ×2 (08:23→20:34)
[2021-11-04] MEDS: DOCUSATE SODIUM 100 MG CAPSULE PO SCH (08:23)
[2021-11-04] MEDS: PANTOPRAZOLE 40 MG TABLET PO SCH (08:23)
[2021-11-04] MEDS: CHLORTHALIDONE 25 MG TABLET PO SCH (08:23)
[2021-11-04] MEDS: ASCORBIC ACID 500 MG TABLET PO SCH (08:23)
[2021-11-04] MEDS: LORATADINE 10 MG TABLET PO SCH (08:23)
[2021-11-04] MEDS: amLODIPine 10 MG TABLET PO SCH (09:26)
[2021-11-04] MEDS: DONEPEZIL 5 MG TABLET PO SCH (16:12)
[2021-11-04] MEDS: diphenhydrAMINE CAP 25 MG CAPSULE PO SCH (20:34)
[2021-11-04] MEDS: AMITRIPTYLINE 50 MG TABLET PO SCH (20:35)
[2021-11-04] MEDS: SERTRALINE 25 MG TABLET PO SCH (20:35)
[2021-11-05] MEDS: MEROPENEM 500 MG in SODIUM CHLORIDE 0.9% 100 ML IV SCH (00:53)
[2021-11-05] MEDS: ENOXAPARIN 30 MG/0.3 ML SYRINGE SUBCUT SCH ×2 (04:58→17:41)
[2021-11-05] MEDS: methylPREDNISolone SOD SUC 40 MG/1 ML VIAL IV SCH ×2 (04:58→17:42)
[2021-11-05] MEDS: METOPROLOL TARTRATE 5 MG/5 ML VIAL IV SCH ×3 (05:02→17:54)
[2021-11-05] MEDS: GABAPENTIN 300 MG CAPSULE PO SCH ×3 (09:00→20:32)
[2021-11-05] MEDS: ASPIRIN CHEW 81 MG TABLET PO SCH (09:00)
[2021-11-05] MEDS: INSULIN LISPRO 100 UNIT/ML SUBCUT SCH ×4 (09:00→20:32)
[2021-11-05] MEDS: FAMOTIDINE 20 MG TABLET PO SCH (09:01)
[2021-11-05] MEDS: METOPROLOL TARTRATE 50 MG TABLET PO SCH ×2 (09:01→20:32)
[2021-11-05] MEDS: CHLORTHALIDONE 25 MG TABLET PO SCH (09:01)
[2021-11-05] MEDS: DOCUSATE SODIUM 100 MG CAPSULE PO SCH (09:01)
[2021-11-05] MEDS: LORATADINE 10 MG TABLET PO SCH (09:01)
[2021-11-05] MEDS: CHOLECALCIFEROL 5,000 UNIT TABLET PO SCH (09:02)
[2021-11-05] MEDS: PANTOPRAZOLE 40 MG TABLET PO SCH (09:02)
[2021-11-05] MEDS: amLODIPine 10 MG TABLET PO SCH (09:02)
[2021-11-05] MEDS: ASCORBIC ACID 500 MG TABLET PO SCH (09:02)
[2021-11-05] MEDS: DONEPEZIL 5 MG TABLET PO SCH (17:42)
[2021-11-05] MEDS: diphenhydrAMINE CAP 25 MG CAPSULE PO SCH (20:31)
[2021-11-05] MEDS: AMITRIPTYLINE 50 MG TABLET PO SCH (20:31)
[2021-11-05] MEDS: SERTRALINE 25 MG TABLET PO SCH (20:32)
[2021-11-05] MEDS ORDERED: LORazepam 1 MG TABLET PO SCH ×2 (20:53→21:30)
[2021-11-05] MEDS ORDERED: LORazepam 2 MG/1 ML VIAL IV PRN (20:53)
[2021-11-05] MEDS ORDERED: LORazepam 1 MG TABLET PO PRN (21:30)
[2021-11-06] MEDS: METOPROLOL TARTRATE 5 MG/5 ML VIAL IV SCH ×2 (00:34→06:16)
[2021-11-06] MEDS: methylPREDNISolone SOD SUC 40 MG/1 ML VIAL IV SCH ×2 (04:28→17:13)
[2021-11-06] MEDS: ENOXAPARIN 30 MG/0.3 ML SYRINGE SUBCUT SCH ×2 (04:30→17:13)
[2021-11-06 06:56] LABS: Basophils % 0.1 % (0.0-0.8); Hematocrit 34.2 VOL% (42.0-52.0); Immature Granulocytes % 0.8 %; Immature Granulocytes Absolute 0.09 #; Lymphocytes # 0.8 10*3/uL (1.4-4.0); Lymphocytes % 6.7 % (21.2-54.2); Mean Corpuscular HGB Conc 32.2 GM/DL (32-36); Mean Corpuscular Volume 95.5 FL (87-102); Mean Platelet Volume 11.8 FL (9.6-12.0); Monocytes % 3.8 % (1.7-12.7); Neutrophils % 88.6 % (38.7-73.9); Platelet Count 220 T/CUMM (130-400); Red Blood Count 3.58 MC/CUMM (3.8-5.5); Red Cell Distribution Width 14.2 % (9.3-17.3); White Blood Count 11.2 T/CUMM (4-12)
[2021-11-06 07:14] LABS: Albumin 1.7 G/DL (3.4-5.0); Bilirubin,Total 0.6 MG/DL (0.20-1.00); Calcium 9.2 MG/DL (8.5-10.1); Osmolality,Calculated 303.4 MOS/KG (273-304); Potassium 4.4 MMOL/L (3.5-5.1)
[2021-11-06 07:15] LABS: Albumin 1.7 G/DL (3.4-5.0); Bilirubin,Direct 0.23 MG/DL (0.0-0.20); Bilirubin,Indirect 0.5 MG/DL (0.0-1.0); Bilirubin,Total 0.7 MG/DL (0.20-1.00); Total Protein 6.3 G/DL (6.4-8.2)
[2021-11-06] MEDS ORDERED: METOPROLOL TARTRATE 5 MG/5 ML VIAL IV PRN (09:45)
[2021-11-06] MEDS ORDERED: LORazepam 2 MG/1 ML VIAL IV PRN (09:46)
[2021-11-06] MEDS: CHLORTHALIDONE 25 MG TABLET PO SCH (10:00)
[2021-11-06] MEDS: INSULIN LISPRO 100 UNIT/ML SUBCUT SCH ×4 (10:00→20:42)
[2021-11-06] MEDS: METOPROLOL TARTRATE 50 MG TABLET PO SCH ×2 (10:00→20:42)
[2021-11-06] MEDS: LORATADINE 10 MG TABLET PO SCH (10:00)
[2021-11-06] MEDS: CHOLECALCIFEROL 5,000 UNIT TABLET PO SCH (10:00)
[2021-11-06] MEDS: GABAPENTIN 300 MG CAPSULE PO SCH ×3 (10:01→20:42)
[2021-11-06] MEDS: FAMOTIDINE 20 MG TABLET PO SCH (10:01)
[2021-11-06] MEDS: ASCORBIC ACID 500 MG TABLET PO SCH (10:01)
[2021-11-06] MEDS: ASPIRIN CHEW 81 MG TABLET PO SCH (10:01)
[2021-11-06] MEDS: amLODIPine 10 MG TABLET PO SCH (10:01)
[2021-11-06] MEDS: PANTOPRAZOLE 40 MG TABLET PO SCH (10:01)
[2021-11-06] MEDS: DOCUSATE SODIUM 100 MG CAPSULE PO SCH (10:01)
[2021-11-06] MEDS: DONEPEZIL 5 MG TABLET PO SCH (17:13)
[2021-11-06] MEDS: diphenhydrAMINE CAP 25 MG CAPSULE PO SCH (20:42)
[2021-11-06] MEDS: AMITRIPTYLINE 50 MG TABLET PO SCH (20:42)
[2021-11-06] MEDS: SERTRALINE 25 MG TABLET PO SCH (20:42)
[2021-11-07] MEDS: MORPHINE 2 MG/1 ML SYRINGE IV PRN (01:36)
[2021-11-07] MEDS: ENOXAPARIN 30 MG/0.3 ML SYRINGE SUBCUT SCH ×2 (05:12→15:58)
[2021-11-07] MEDS: methylPREDNISolone SOD SUC 40 MG/1 ML VIAL IV SCH ×3 (05:22→16:38)
[2021-11-07] MEDS: ASPIRIN CHEW 81 MG TABLET PO SCH (09:06)
[2021-11-07] MEDS: GABAPENTIN 300 MG CAPSULE PO SCH ×3 (09:06→20:45)
[2021-11-07] MEDS: CHOLECALCIFEROL 5,000 UNIT TABLET PO SCH (09:06)
[2021-11-07] MEDS: ASCORBIC ACID 500 MG TABLET PO SCH (09:06)
[2021-11-07] MEDS: CHLORTHALIDONE 25 MG TABLET PO SCH (09:07)
[2021-11-07] MEDS: LORATADINE 10 MG TABLET PO SCH (09:07)
[2021-11-07] MEDS: DOCUSATE SODIUM 100 MG CAPSULE PO SCH (09:07)
[2021-11-07] MEDS: amLODIPine 10 MG TABLET PO SCH (09:07)
[2021-11-07] MEDS: PANTOPRAZOLE 40 MG TABLET PO SCH (09:07)
[2021-11-07] MEDS: FAMOTIDINE 20 MG TABLET PO SCH (09:07)
[2021-11-07] MEDS: INSULIN LISPRO 100 UNIT/ML SUBCUT SCH ×4 (09:08→20:44)
[2021-11-07] MEDS: METOPROLOL TARTRATE 50 MG TABLET PO SCH ×2 (09:08→20:45)
[2021-11-07 11:18] LABS: Albumin 1.8 G/DL (3.4-5.0); Bilirubin,Direct 0.22 MG/DL (0.0-0.20); Bilirubin,Indirect 0.3 MG/DL (0.0-1.0); Bilirubin,Total 0.5 MG/DL (0.20-1.00); Total Protein 7.2 G/DL (6.4-8.2)
[2021-11-07] MEDS: DONEPEZIL 5 MG TABLET PO SCH (15:58)
[2021-11-07] MEDS: diphenhydrAMINE CAP 25 MG CAPSULE PO SCH (20:45)
[2021-11-07] MEDS: AMITRIPTYLINE 50 MG TABLET PO SCH (20:45)
[2021-11-07] MEDS: LACTULOSE 20 GM/30 ML UDCUP PO SCH (20:45)
[2021-11-07] MEDS: SERTRALINE 25 MG TABLET PO SCH (20:45)
[2021-11-08] MEDS: ENOXAPARIN 30 MG/0.3 ML SYRINGE SUBCUT SCH ×2 (04:51→15:36)
[2021-11-08] MEDS: methylPREDNISolone SOD SUC 40 MG/1 ML VIAL IV SCH ×2 (05:52→17:02)
[2021-11-08 07:08] LABS: Basophils % 0.1 % (0.0-0.8); Hematocrit 37.3 VOL% (42.0-52.0); Hemoglobin 11.8 GM/DL (14.0-18.0); Immature Granulocytes Absolute 0.15 #; Lymphocytes # 0.8 10*3/uL (1.4-4.0); Lymphocytes % 5.6 % (21.2-54.2); Mean Corpuscular HGB Conc 31.6 GM/DL (32-36); Mean Corpuscular Volume 96.6 FL (87-102); Mean Platelet Volume 11.7 FL (9.6-12.0); Monocytes % 3.4 % (1.7-12.7); Neutrophils % 89.9 % (38.7-73.9); Platelet Count 254 T/CUMM (130-400); Red Blood Count 3.86 MC/CUMM (3.8-5.5); Red Cell Distribution Width 14.4 % (9.3-17.3); White Blood Count 14.7 T/CUMM (4-12)
[2021-11-08 07:39] LABS: Calcium 8.7 MG/DL (8.5-10.1); Osmolality,Calculated 328.4 MOS/KG (273-304); Potassium 4.5 MMOL/L (3.5-5.1)
[2021-11-08 07:42] LABS: Albumin 1.7 G/DL (3.4-5.0); Bilirubin,Direct 0.18 MG/DL (0.0-0.20); Bilirubin,Indirect 0.3 MG/DL (0.0-1.0); Bilirubin,Total 0.5 MG/DL (0.20-1.00)
[2021-11-08] MEDS: LACTULOSE 20 GM/30 ML UDCUP PO SCH ×2 (08:14→21:57)
[2021-11-08] MEDS: ASCORBIC ACID 500 MG TABLET PO SCH (08:15)
[2021-11-08] MEDS: CHOLECALCIFEROL 5,000 UNIT TABLET PO SCH (08:15)
[2021-11-08] MEDS: INSULIN LISPRO 100 UNIT/ML SUBCUT SCH ×4 (08:15→21:58)
[2021-11-08] MEDS: FAMOTIDINE 20 MG TABLET PO SCH (08:15)
[2021-11-08] MEDS: GABAPENTIN 300 MG CAPSULE PO SCH ×3 (08:15→21:57)
[2021-11-08] MEDS: LORATADINE 10 MG TABLET PO SCH (08:15)
[2021-11-08] MEDS: ASPIRIN CHEW 81 MG TABLET PO SCH (08:15)
[2021-11-08] MEDS: DOCUSATE SODIUM 100 MG CAPSULE PO SCH (08:15)
[2021-11-08] MEDS: amLODIPine 10 MG TABLET PO SCH (08:15)
[2021-11-08] MEDS: METOPROLOL TARTRATE 50 MG TABLET PO SCH ×2 (08:15→21:57)
[2021-11-08] MEDS: CHLORTHALIDONE 25 MG TABLET PO SCH (08:16)
[2021-11-08] MEDS: SODIUM CHLORIDE 0.9% 1,000 ML IV SCH (09:46)
[2021-11-08] MEDS: DONEPEZIL 5 MG TABLET PO SCH (16:02)
[2021-11-08] MEDS: diphenhydrAMINE CAP 25 MG CAPSULE PO SCH (21:57)
[2021-11-08] MEDS: SERTRALINE 25 MG TABLET PO SCH (21:57)
[2021-11-08] MEDS: AMITRIPTYLINE 50 MG TABLET PO SCH (21:57)
[2021-11-09] MEDS: ENOXAPARIN 30 MG/0.3 ML SYRINGE SUBCUT SCH ×2 (04:03→15:58)
[2021-11-09] MEDS: methylPREDNISolone SOD SUC 40 MG/1 ML VIAL IV SCH ×2 (05:13→16:09)
[2021-11-09] MEDS: SODIUM CHLORIDE 0.9% 1,000 ML IV SCH ×2 (05:13→17:45)
[2021-11-09] MEDS: LORATADINE 10 MG TABLET PO SCH (10:54)
[2021-11-09] MEDS: ASPIRIN CHEW 81 MG TABLET PO SCH (10:54)
[2021-11-09] MEDS: CHOLECALCIFEROL 5,000 UNIT TABLET PO SCH (10:54)
[2021-11-09] MEDS: amLODIPine 10 MG TABLET PO SCH (10:54)
[2021-11-09] MEDS: METOPROLOL TARTRATE 50 MG TABLET PO SCH ×2 (10:55→20:49)
[2021-11-09] MEDS: CHLORTHALIDONE 25 MG TABLET PO SCH (10:55)
[2021-11-09] MEDS: DOCUSATE SODIUM 100 MG CAPSULE PO SCH (10:55)
[2021-11-09] MEDS: ASCORBIC ACID 500 MG TABLET PO SCH (10:55)
[2021-11-09] MEDS: GABAPENTIN 300 MG CAPSULE PO SCH (10:55)
[2021-11-09] MEDS: INSULIN LISPRO 100 UNIT/ML SUBCUT SCH ×4 (10:57→20:50)
[2021-11-09] MEDS: FAMOTIDINE 20 MG TABLET PO SCH (10:58)
[2021-11-09] MEDS: LACTULOSE 20 GM/30 ML UDCUP PO SCH ×2 (11:01→20:49)
[2021-11-09] MEDS: GABAPENTIN 100 MG CAPSULE PO SCH ×2 (15:58→20:49)
[2021-11-09] MEDS: DONEPEZIL 5 MG TABLET PO SCH (15:58)
[2021-11-09] MEDS: AMITRIPTYLINE 50 MG TABLET PO SCH (20:49)
[2021-11-09] MEDS: SERTRALINE 25 MG TABLET PO SCH (20:49)
[2021-11-09] MEDS: MORPHINE 2 MG/1 ML SYRINGE IV PRN (20:50)
[2021-11-10] MEDS: ENOXAPARIN 30 MG/0.3 ML SYRINGE SUBCUT SCH ×2 (03:01→18:43)
[2021-11-10] MEDS: LORazepam 2 MG/1 ML VIAL IV PRN ×3 (04:20→22:55)
[2021-11-10] MEDS: methylPREDNISolone SOD SUC 40 MG/1 ML VIAL IV SCH ×2 (05:01→18:42)
[2021-11-10 06:10] LABS: Basophils % 0.1 % (0.0-0.8); Hematocrit 34.5 VOL% (42.0-52.0); Hemoglobin 10.6 GM/DL (14.0-18.0); Immature Granulocytes Absolute 0.17 #; Lymphocytes # 0.6 10*3/uL (1.4-4.0); Lymphocytes % 3.6 % (21.2-54.2); Mean Corpuscular HGB Conc 30.7 GM/DL (32-36); Mean Corpuscular Volume 98.3 FL (87-102); Mean Platelet Volume 11.8 FL (9.6-12.0); Monocytes % 2.5 % (1.7-12.7); Neutrophils % 92.8 % (38.7-73.9); Platelet Count 224 T/CUMM (130-400); Red Blood Count 3.51 MC/CUMM (3.8-5.5); Red Cell Distribution Width 14.5 % (9.3-17.3); White Blood Count 16.6 T/CUMM (4-12)
[2021-11-10 06:38] LABS: Lymphocytes 4 % (20-55); Segmented Neutrophils 94 % (50-85); Total Cells Counted 100
[2021-11-10 06:39] LABS: Hypochromia 1+; Microcytosis Slight
[2021-11-10 06:42] LABS: Albumin 1.4 G/DL (3.4-5.0); Bilirubin,Total 0.6 MG/DL (0.20-1.00); Calcium 8.3 MG/DL (8.5-10.1); Osmolality,Calculated 337.4 MOS/KG (273-304); Potassium 4.3 MMOL/L (3.5-5.1); Total Protein 6.2 G/DL (6.4-8.2)
[2021-11-10] MEDS: LACTULOSE 20 GM/30 ML UDCUP PO SCH ×2 (09:49→15:39)
[2021-11-10] MEDS: CHOLECALCIFEROL 5,000 UNIT TABLET PO SCH ×2 (09:49→15:15)
[2021-11-10] MEDS: ASPIRIN CHEW 81 MG TABLET PO SCH ×2 (09:49→15:39)
[2021-11-10] MEDS: LORATADINE 10 MG TABLET PO SCH (09:49)
[2021-11-10] MEDS: GABAPENTIN 100 MG CAPSULE PO SCH ×3 (09:50→15:15)
[2021-11-10] MEDS: FAMOTIDINE 20 MG TABLET PO SCH ×2 (09:50→15:15)
[2021-11-10] MEDS: METOPROLOL TARTRATE 50 MG TABLET PO SCH ×2 (09:50→15:39)
[2021-11-10] MEDS: amLODIPine 10 MG TABLET PO SCH ×2 (09:50→15:15)
[2021-11-10] MEDS: ASCORBIC ACID 500 MG TABLET PO SCH ×2 (09:50→15:15)
[2021-11-10] MEDS: DOCUSATE SODIUM 100 MG CAPSULE PO SCH (09:51)
[2021-11-10] MEDS: cefTRIAXone 1,000 MG in SODIUM CHLORIDE 0.9% 100 ML IV SCH (09:56)
[2021-11-10] MEDS: SODIUM CHLORIDE 0.45% 1,000 ML IV SCH ×2 (09:56→22:55)
[2021-11-10] MEDS: INSULIN LISPRO 100 UNIT/ML SUBCUT SCH ×3 (10:08→18:25)
[2021-11-10] MEDS: MORPHINE 2 MG/1 ML SYRINGE IV PRN ×2 (12:06→18:58)
[2021-11-10] MEDS: SODIUM CHLORIDE 0.9% 1,000 ML IV SCH (15:50)
[2021-11-10] MEDS ORDERED: DEXTROSE 10% 25 GM/250 ML BAG IV PRN (16:55)
[2021-11-10] MEDS ORDERED: GLUCAGON 1 MG VIAL IM PRN (16:55)
[2021-11-10] MEDS ORDERED: AMINO ACIDS/DEXT/LYTES 4.25-5% 2,000 ML IV SCH (17:00)
[2021-11-10] MEDS ORDERED: METOPROLOL TARTRATE 5 MG/5 ML VIAL IV SCH (18:00)
[2021-11-10] MEDS ORDERED: ZINC/COPPER/MANGANESE/SELENIUM 1 ML, MULTIVITAMIN INJ 10 ML in AMINO ACIDS/DEXT/LYTES 4... IV SCH (18:00)
[2021-11-10] MEDS: DONEPEZIL 5 MG TABLET PO SCH (18:28)
[2021-11-10] MEDS ORDERED: MORPHINE 2 MG/1 ML SYRINGE IV PRN ×2 (18:49→22:45)
[2021-11-10] MEDS: METOPROLOL TARTRATE 5 MG/5 ML VIAL IV PRN (22:55)
[2021-11-11] MEDS: LACTULOSE 20 GM/30 ML UDCUP PO SCH ×2 (02:58→12:06)
[2021-11-11] MEDS: INSULIN LISPRO 100 UNIT/ML SUBCUT SCH ×4 (02:58→18:02)
[2021-11-11] MEDS: AMITRIPTYLINE 50 MG TABLET PO SCH (02:58)
[2021-11-11] MEDS: METOPROLOL TARTRATE 50 MG TABLET PO SCH ×2 (02:59→12:06)
[2021-11-11] MEDS: GABAPENTIN 100 MG CAPSULE PO SCH ×2 (02:59→12:06)
[2021-11-11] MEDS: SERTRALINE 25 MG TABLET PO SCH (02:59)
[2021-11-11] MEDS: ENOXAPARIN 30 MG/0.3 ML SYRINGE SUBCUT SCH ×2 (04:20→16:19)
[2021-11-11] MEDS: LORazepam 2 MG/1 ML VIAL IV PRN ×9 (04:20→23:08)
[2021-11-11] MEDS: methylPREDNISolone SOD SUC 40 MG/1 ML VIAL IV SCH (04:20)
[2021-11-11] MEDS: METOPROLOL TARTRATE 5 MG/5 ML VIAL IV PRN ×2 (04:21→07:54)
[2021-11-11 07:06] LABS: Calcium 8.3 MG/DL (8.5-10.1); Osmolality,Calculated 327.3 MOS/KG (273-304); Potassium 4.7 MMOL/L (3.5-5.1); Prealbumin 12.5 MG/DL (20-40)
[2021-11-11] MEDS ORDERED: GLUCAGON 1 MG VIAL IM PRN (08:42)
[2021-11-11] MEDS ORDERED: DEXTROSE 10% 25 GM/250 ML BAG IV PRN (08:45)
[2021-11-11] MEDS: amLODIPine 10 MG TABLET PO SCH (12:06)
[2021-11-11] MEDS: ASPIRIN CHEW 81 MG TABLET PO SCH (12:06)
[2021-11-11] MEDS: cefTRIAXone 1,000 MG in SODIUM CHLORIDE 0.9% 100 ML IV SCH (12:06)
[2021-11-11] MEDS: DOCUSATE SODIUM 100 MG CAPSULE PO SCH (12:06)
[2021-11-11] MEDS: FAMOTIDINE 20 MG TABLET PO SCH (12:07)
[2021-11-11] MEDS: SODIUM CHLORIDE 0.45% 1,000 ML IV SCH (12:07)
[2021-11-11] MEDS: CHOLECALCIFEROL 5,000 UNIT TABLET PO SCH (12:07)
[2021-11-11] MEDS: ASCORBIC ACID 500 MG TABLET PO SCH (12:07)
[2021-11-11] MEDS ORDERED: methylPREDNISolone SOD SUC 40 MG/1 ML VIAL IV SCH (17:00)
[2021-11-12] MEDS: LORazepam 2 MG/1 ML VIAL IV PRN ×4 (01:49→12:26)
[2021-11-12] MEDS: ENOXAPARIN 30 MG/0.3 ML SYRINGE SUBCUT SCH (03:59)
[2021-11-12] MEDS: INSULIN LISPRO 100 UNIT/ML SUBCUT SCH ×2 (05:31)
[2021-11-12 08:34] VITALS: BP 134/60
[2021-11-12] MEDS ORDERED: HYDROmorphone 2 MG/1 ML VIAL IV PRN (10:02)
== END 2021-11-12 12:38 | disposition expired | DRG 177 ==
LOC: EDUNIT# → EDBD → N.ED 08:59 → N.EDINP 11:23 → N.TELEN 15:57 → N.ICU 11-01 21:08 → N.CC 11-02 01:44 → N.TELEN 11-08 17:56
PROVIDERS: ADMIT Family Medicine; ATTEND Family Medicine